=== PATIENT | female | born 2005 | race Two or more races ===

== ENCOUNTER 2025-01-19 01:44 | Emergency (ER) | payer OTHER ==
[~2025-01-19] VITALS: Ht 160 cm; Wt 48.5 kg
[2025-01-19 02:16] VITALS: BP 124/71; O2SAT 97
[2025-01-19] MEDS ORDERED: AMOX-CLAV 875-1 EACH PO (06:19)
[2025-01-19] MEDS ORDERED: IBUPROFEN800 MG PO (06:19)
[2025-01-19] MEDS ORDERED: DEXAMETHASONE SODIUM PHOSPHATE 4 MG/ML VIAL ONE (06:21)
[2025-01-19] MEDS ORDERED: KETOROLAC TROMETHAMINE 60 MG VIAL IM ONE ×2 (06:21→06:30)
[2025-01-19] MEDS ORDERED: SALINE MIST45 ML NASAL (06:26)
[2025-01-19] MEDS ORDERED: DEXAMETHASONE SODIUM PHOSPHATE 4 MG/ML VIAL IM ONE (06:30)
== END 2025-01-19 06:48 | disposition home or self-care (01) ==
LOC: ER 01:45 → EMR PED 01:52
DX: K08.89 Other specified disorders of teeth and supporting structures (principal); Z91.018 Allergy to other foods